=== PATIENT | female | born 1935 | race Hispanic/Latino ===

== ENCOUNTER 2021-10-07 15:58 | Observation (INO) | payer MEDICARE ==
[~2021-10-07] VITALS: Ht 149.9 cm; Wt 41.5 kg
[2021-10-07 16:42] LABS: BASOPHILS % (AUTO) 0.4 % (0.0-5.0); EOSINOPHILS % (AUTO) 0.5 % (0.0-8.0); HEMATOCRIT 41.7 % (36-48); LYMPHOCYTES % (AUTO) 19.2 % (21.0-51.0); MEAN CORPUSCULAR HGB CONC 31.7 g/dL (32.0-36.0); MEAN CORPUSCULAR VOLUME 88.5 fL (79-99); MONOCYTES % (AUTO) 11.6 % (3.0-13.0); NEUTROPHILS % (AUTO) 67.6 % (40.0-77.0); PLATELET COUNT (AUTO) 186 K/uL (130-400); RED BLOOD CELL COUNT(AUTO) 4.71 MIL/uL (4.00-5.50); RED CELL DISTRIBUTION WIDTH 17.2 % (11.0-15.5); WHITE BLOOD COUNT (AUTO) 8.5 K/uL (4.8-10.8)
[2021-10-07 16:49] LABS: CREATININE 0.8 mg/dL (0.5-1.5); POTASSIUM 3.7 mmol/L (3.5-5.1)
[2021-10-07 16:53] LABS: ALBUMIN 3.8 g/dL (3.5-5.0); BILIRUBIN,TOTAL 0.9 mg/dL (0.2-1.0); TOTAL PROTEIN, SERUM 8.7 g/dL (6.0-8.3)
[2021-10-07 17:56] LABS: APPEARANCE,URINE Clear (CLEAR); BILIRUBIN,URINE Negative (NEGATIVE); COLOR,URINE Yellow (YELLOW); GLUCOSE, URINE (UA) Negative (NEGATIVE); KETONES,URINE Negative (NEGATIVE); LEUKOCYTE ESTERASE ,URINE Moderate (NEGATIVE); NITRATE,URINE Negative (NEGATIVE); OCCULT BLOOD,URINE Negative (NEGATIVE); PH,URINE 5.5 (5.0-8.0); PROTEIN,URINE Trace mg/dL (NEGATIVE)
[2021-10-07 18:08] LABS: BACTERIA,URINE Rare /HPF (None Seen); RBC,URINE 0-1 /HPF (0-1)
[2021-10-07 18:09] LABS: MUCUS,URINE Rare LPF (None Seen); SQUAMOUS EPITHELIAL CELL,UR Few /HPF (0-2); YEAST,URINE BUDDING Moderate /HPF (None Seen)
[2021-10-07 18:10] LABS: HYALINE CASTS, URINE 0-1 /LPF (0-1 /LPF)
[2021-10-07] MEDS ORDERED: ASPIRIN 325MG EC TAB PO ONE (18:30)
[2021-10-07] MEDS ORDERED: CEFTRIAXONE 1G VIAL IVP ONE (18:30)
[2021-10-07] MEDS ORDERED: ACETAMINOPHEN 325 MG TAB PO PRN (20:00)
[2021-10-07] MEDS ORDERED: HYDRALAZINE 20MG/ML VIAL IV PRN (20:00)
[2021-10-07] MEDS ORDERED: HYDROCODONE/ACETAMINOPHEN 5/325 MG TAB PO PRN (20:00)
[2021-10-07] MEDS ORDERED: ONDANSETRON 4MG INJ IVP PRN (20:00)
[2021-10-07] MEDS ORDERED: ALBUTEROL 0.083% 2.5 MG/3 ML INH IH PRN (20:00)
[2021-10-07] MEDS ORDERED: TEMAZEPAM 15 MG CAPSULE PO PRN (20:00)
[2021-10-07] MEDS ORDERED: MORPHINE 2 MG SYG IVP PRN (20:00)
[2021-10-07] MEDS ORDERED: ACETAMINOPHEN 650 MG SUPPOSITORY RC PRN (20:00)
[2021-10-07] MEDS: 0.9%NACL 1000ML 1,000 ML IV SCH (20:45)
[2021-10-07] MEDS: INSULIN LISPRO 100 UNIT/ML 3ML SQ SCH (20:45)
[2021-10-07] MEDS: SIMVASTATIN 20 MG TABLET PO SCH (21:00)
[2021-10-07 22:58] LABS: CREATINE KINASE, TOTAL 45 U/L (21-232); MYOGLOBIN 42 ng/mL (10-92)
[2021-10-07] MEDS ORDERED: HALOPERIDOL INJ 5 MG/ML VIAL ONE (23:20)
[2021-10-08 00:05] VITALS: BP 106/59
[2021-10-08] MEDS: 0.9%NACL 1000ML 1,000 ML IV SCH (00:36)
[2021-10-08 01:52] LABS: BASOPHILS % (AUTO) 0.3 % (0.0-5.0); EOSINOPHILS % (AUTO) 0.5 % (0.0-8.0); HEMATOCRIT 35.6 % (36-48); LYMPHOCYTES % (AUTO) 15.9 % (21.0-51.0); MEAN CORPUSCULAR HEMOGLOBIN 28.1 pg (27.0-33.0); MEAN CORPUSCULAR HGB CONC 31.7 g/dL (32.0-36.0); MEAN CORPUSCULAR VOLUME 88.6 fL (79-99); MONOCYTES % (AUTO) 14.3 % (3.0-13.0); NEUTROPHILS % (AUTO) 68.5 % (40.0-77.0); PLATELET COUNT (AUTO) 167 K/uL (130-400); RED BLOOD CELL COUNT(AUTO) 4.02 MIL/uL (4.00-5.50); RED CELL DISTRIBUTION WIDTH 17.1 % (11.0-15.5); WHITE BLOOD COUNT (AUTO) 10.1 K/uL (4.8-10.8)
[2021-10-08 02:10] LABS: B-TYPE NATRIURETIC PEPTIDE 145 pg/mL (0-100); CREATININE 0.7 mg/dL (0.5-1.5); MAGNESIUM 1.6 mg/dL (1.80-2.40); PHOSPHORUS 3.6 mg/dL (2.5-4.9); POTASSIUM 3.4 mmol/L (3.5-5.1)
[2021-10-08 02:11] LABS: CREATINE KINASE, TOTAL 61 U/L (21-232); MYOGLOBIN 92 ng/mL (10-92)
[2021-10-08 04:00] VITALS: BP 120/55
[2021-10-08] MEDS ORDERED: POTASSIUM CHLORIDE 10MEQ/100ML 100 ML IV PRN (05:00)
[2021-10-08] MEDS ORDERED: LIDOCAINE HCL-MPF 1% 2ML VIAL IJ PRN (05:00)
[2021-10-08] MEDS ORDERED: MAGNESIUM 2GM PREMIX 50ML 50 ML IV SCH (05:00)
[2021-10-08] MEDS: INSULIN LISPRO 100 UNIT/ML 3ML SQ SCH ×4 (06:34→20:19)
[2021-10-08 08:00] VITALS: BP 124/57
[2021-10-08] MEDS ORDERED: POTASSIUM CHLORIDE 10% ELIXIR 20 MEQ/15 ML UDCUP PO PRN (08:00)
[2021-10-08] MEDS ORDERED: POTASSIUM CHLORIDE 20MEQ/100ML 100 ML IV PRN ×2 (08:00)
[2021-10-08] MEDS ORDERED: LIDOCAINE HCL-MPF 1% 2ML VIAL IV PRN ×2 (08:00)
[2021-10-08] MEDS ORDERED: KCL 20 MEQ ERTAB PO PRN (08:00)
[2021-10-08] MEDS ORDERED: ASPIRIN 81MG CHEW TAB PO SCH (09:00)
[2021-10-08] MEDS: CEFTRIAXONE 1G VIAL IVP SCH (09:32)
[2021-10-08] MEDS: POLYETHYLENE GLYCOL 3350 17 GM POWD.PACK PO SCH (09:33)
[2021-10-08] MEDS: ENOXAPARIN SODIUM 30 MG/0.3 ML SQ SCH (09:33)
[2021-10-08] MEDS ORDERED: TRAZ-185 PO (11:08)
[2021-10-08] MEDS ORDERED: ASPI-1197 PO (11:08)
[2021-10-08] MEDS ORDERED: DONE10TA43 PO (11:08)
[2021-10-08] MEDS ORDERED: SITA25TA5 PO (11:08)
[2021-10-08] MEDS ORDERED: MEMA5TAB42 PO (11:08)
[2021-10-08] MEDS ORDERED: ATOR20TA65 PO (11:08)
[2021-10-08] MEDS ORDERED: METF-444 PO (11:08)
[2021-10-08] MEDS ORDERED: CALC-866 PO (11:08)
[2021-10-08] MEDS ORDERED: MONT-39 PO (11:08)
[2021-10-08] MEDS ORDERED: MAGNESIUM 2GM PREMIX 50ML 50 ML IV PRN (11:30)
[2021-10-08] MEDS ORDERED: TRAZODONE HCL 50 MG TAB PO PRN (11:30)
[2021-10-08] MEDS ORDERED: CLONIDINE HCL 0.1 MG TABLET PO PRN (11:30)
[2021-10-08 11:52] VITALS: BP 103/52
[2021-10-08 16:00] VITALS: BP 97/67
[2021-10-08] MEDS: SIMVASTATIN 20 MG TABLET PO SCH (20:22)
[2021-10-08 20:50] VITALS: BP 117/59
[2021-10-08] MEDS ORDERED: ATORVASTATIN 20 MG TABLET PO SCH (21:00)
[2021-10-08] MEDS ORDERED: DONEPEZIL HCL 5 MG TAB PO SCH (21:00)
[2021-10-09] VITALS: BP 135/59
[2021-10-09 04:26] VITALS: BP 116/59
[2021-10-09 06:00] LABS: CREATININE 0.6 mg/dL (0.5-1.5); MAGNESIUM 1.7 mg/dL (1.80-2.40); POTASSIUM 3.5 mmol/L (3.5-5.1)
[2021-10-09 06:24] LABS: HEMATOCRIT 37.3 % (36-48); MEAN CORPUSCULAR HEMOGLOBIN 28.9 pg (27.0-33.0); MEAN CORPUSCULAR HGB CONC 29.8 g/dL (32.0-36.0); MEAN CORPUSCULAR VOLUME 97.1 fL (79-99); PLATELET COUNT (AUTO) 137 K/uL (130-400); RED BLOOD CELL COUNT(AUTO) 3.84 MIL/uL (4.00-5.50); RED CELL DISTRIBUTION WIDTH 17.5 % (11.0-15.5); WHITE BLOOD COUNT (AUTO) 5.7 K/uL (4.8-10.8)
[2021-10-09] MEDS: INSULIN LISPRO 100 UNIT/ML 3ML SQ SCH (07:30)
[2021-10-09 08:00] VITALS: BP 115/63
[2021-10-09] MEDS ORDERED: MONTELUKAST SODIUM 10 MG TAB PO SCH (09:00)
[2021-10-09] MEDS ORDERED: **HM** VIT D3 125MCG PO SCH (09:00)
[2021-10-09] MEDS ORDERED: ASPIRIN 81MG CHEW TAB PO SCH (09:00)
[2021-10-09] MEDS ORDERED: MEMANTINE HCL 5 MG TABLET PO SCH (09:00)
[2021-10-09] MEDS: POLYETHYLENE GLYCOL 3350 17 GM POWD.PACK PO SCH (10:00)
[2021-10-09] MEDS: CEFTRIAXONE 1G VIAL IVP SCH (10:01)
[2021-10-09] MEDS: ENOXAPARIN SODIUM 30 MG/0.3 ML SQ SCH (10:01)
[2021-10-09 12:00] VITALS: BP 139/62
[2021-10-09] MEDS: 0.9%NACL 1000ML 1,000 ML IV SCH ×2 (12:00→12:04)
[2021-10-09] MEDS ORDERED: HYDROCORTISONE 25 MG SUPPOSITORY PR SCH (13:30)
[2021-10-09] MEDS ORDERED: LEVO500T90 PO (14:28)
== END 2021-10-09 17:00 | disposition home or self-care (01) ==
LOC: EDH 15:58 → EDHIP 19:31 → 2DH 23:55 → 3AH 10-08 15:15
PROVIDERS: ADMIT Internal Medicine Critical Care Medicine; ATTEND Internal Medicine Critical Care Medicine
DX: G93.41 Metabolic encephalopathy (principal); Z20.822 Contact with and (suspected) exposure to COVID-19; F03.91 Unspecified dementia, unspecified severity, with behavioral disturbance; I44.7 Left bundle-branch block, unspecified; N30.00 Acute cystitis without hematuria; R79.89 Other specified abnormal findings of blood chemistry; E43 Unspecified severe protein-calorie malnutrition; E87.8 Other disorders of electrolyte and fluid balance, not elsewhere classified; E11.65 Type 2 diabetes mellitus with hyperglycemia; K62.3 Rectal prolapse; I50.9 Heart failure, unspecified; E78.00 Pure hypercholesterolemia, unspecified; I21.4 Non-ST elevation (NSTEMI) myocardial infarction; N81.4 Uterovaginal prolapse, unspecified; Z79.82 Long term (current) use of aspirin; Z79.84 Long term (current) use of oral hypoglycemic drugs; Z79.899 Other long term (current) drug therapy
CPT/HCPCS: 36415 ×3; 71045; 80048 ×2; 80053; 81001; 82550 ×3; 82948 ×7; 83605; 83690; 83735 ×2; 83874 ×2; 83880 ×2; 84100; 84145; 84484 ×5; 85025 ×2; 85027; 87040 ×2; 87088; 87635; 93005; 94640; 96361 ×3; 96365; 96366; 96372 ×2; 96375; 96376 ×2; 97039 ×2; 97116; 97161; 97530; 99285; C9803; G0378 ×44; J0696 ×3; J1630; J1650 ×2; J3475; J7030 ×3

== ENCOUNTER 2022-01-06 14:29 | Emergency (ER) | payer MEDICARE ==
[~2022-01-06] VITALS: Ht 142.2 cm; Wt 43.1 kg
[~2022-01-06 14:29] MED LIST: ASPI-1197 PO; ATOR20TA65 PO; CALC-866 PO; DONE10TA43 PO; LEVO-70 PO; MEMA5TAB42 PO; METF-444 PO; MONT-39 PO; SITA25TA5 PO; TRAZ-185 PO
[2022-01-06 15:56] LABS: BASOPHILS % (AUTO) 0.2 % (0.0-5.0); EOSINOPHILS % (AUTO) 0.5 % (0.0-8.0); HEMATOCRIT 35.8 % (36-48); LYMPHOCYTES % (AUTO) 15.5 % (21.0-51.0); MEAN CORPUSCULAR HEMOGLOBIN 27.8 pg (27.0-33.0); MEAN CORPUSCULAR HGB CONC 32.1 g/dL (32.0-36.0); MEAN CORPUSCULAR VOLUME 86.7 fL (79-99); NEUTROPHILS % (AUTO) 71.4 % (40.0-77.0); PLATELET COUNT (AUTO) 172 K/uL (130-400); RED BLOOD CELL COUNT(AUTO) 4.13 MIL/uL (4.00-5.50); RED CELL DISTRIBUTION WIDTH 15.1 % (11.0-15.5); WHITE BLOOD COUNT (AUTO) 17.3 K/uL (4.8-10.8)
[2022-01-06 16:06] LABS: CREATININE 0.8 mg/dL (0.5-1.5); POTASSIUM 3.5 mmol/L (3.5-5.1)
[2022-01-06 16:16] LABS: ALBUMIN 3.2 g/dL (3.5-5.0); TOTAL PROTEIN, SERUM 8.4 g/dL (6.0-8.3)
[2022-01-06 16:19] LABS: BILIRUBIN,URINE NEGATIVE (NEGATIVE); COLOR,URINE YELLOW (YELLOW); GLUCOSE, URINE (UA) NEGATIVE (NEGATIVE); KETONES,URINE NEGATIVE (NEGATIVE); LEUKOCYTE ESTERASE ,URINE 500 Leu/uL (NEGATIVE); NITRATE,URINE 2+ (NEGATIVE); OCCULT BLOOD,URINE NEGATIVE (NEGATIVE); PROTEIN,URINE 20 mg/dL (NEGATIVE); UROBILINOGEN,URINE 0.2 mg/dL (0.2-1.0)
[2022-01-06 16:23] LABS: APPEARANCE,URINE CLEAR (CLEAR)
[2022-01-06 16:26] LABS: BACTERIA,URINE MANY /HPF (None Seen); SQUAMOUS EPITHELIAL CELL,UR RARE /HPF (0-2); WBC,URINE 26-50 /HPF (0-1)
[2022-01-06] MEDS ORDERED: CEFTRIAXONE 1G VIAL IVP ONE (17:00)
[2022-01-06] MEDS ORDERED: MAGN296S76 PO (17:06)
[2022-01-06] MEDS ORDERED: CEPH500B PO (17:06)
[2022-01-06] MEDS ORDERED: BISA10SU61 RC (17:06)
[2022-01-06 17:10] VITALS: BP 134/82
== END 2022-01-06 17:36 | disposition home or self-care (01) ==
LOC: EDH 14:29
DX: N39.0 Urinary tract infection, site not specified (principal); K59.00 Constipation, unspecified; F03.90 Unspecified dementia, unspecified severity, without behavioral disturbance, psychotic disturbance, mood disturbance, and anxiety; E11.9 Type 2 diabetes mellitus without complications; E78.00 Pure hypercholesterolemia, unspecified; Z90.49 Acquired absence of other specified parts of digestive tract; Z98.890 Other specified postprocedural states; Z79.82 Long term (current) use of aspirin; Z79.899 Other long term (current) drug therapy; Z79.84 Long term (current) use of oral hypoglycemic drugs
CPT/HCPCS: 99284; 96374; 80053; 85025; 87077; 87088; 87186; 81001; 36415; 74018; J0696

== ENCOUNTER 2022-11-21 14:19 | Observation (INO) | payer MEDICARE ==
[~2022-11-21] VITALS: Ht 149.9 cm; Wt 48.7 kg
[~2022-11-21 14:19] MED LIST changes: +BISA10SU61 RC; +CEPH500B PO; +MAGN296S73 PO
[2022-11-21 14:53] LABS: SARS-CoV-2, RNA, NAAT NEGATIVE SARS CoV-2 (NEGATIVE)
[2022-11-21 14:58] LABS: INFLUENZA TYPE A Negative For Type A (NEGATIVE); INFLUENZA TYPE B Negative For Type B (NEGATIVE)
[2022-11-21 15:13] LABS: BASOPHILS # (AUTO) 0.05 K/uL (0.00-0.20); BASOPHILS % (AUTO) 0.4 % (0.0-5.0); EOSINOPHILS # (AUTO) 0.02 K/uL (0.00-0.70); EOSINOPHILS % (AUTO) 0.2 % (0.0-8.0); HEMATOCRIT 41.2 % (36-48); IMMATURE GRANULOCYTE ABSOLUTE 0.14 K/uL (0-1); LYMPHOCYTES # (AUTO) 2.4 K/uL (1.0-4.8); LYMPHOCYTES % (AUTO) 18.5 % (21.0-51.0); MEAN CORPUSCULAR HGB CONC 31.6 g/dL (32.0-36.0); MONOCYTES # (AUTO) 1.5 K/uL (0.1-1.0); MONOCYTES % (AUTO) 11.4 % (3.0-13.0); NEUTROPHILS # (AUTO) 8.8 K/uL (1.8-7.7); NEUTROPHILS % (AUTO) 68.4 % (40.0-77.0); PLATELET COUNT (AUTO) 208 K/uL (130-400); RED BLOOD CELL COUNT(AUTO) 4.48 MIL/uL (4.00-5.50); RED CELL DISTRIBUTION WIDTH 15.3 % (11.0-15.5); WHITE BLOOD COUNT (AUTO) 12.8 K/uL (4.8-10.8)
[2022-11-21 15:24] LABS: CREATININE 1.6 mg/dL (0.5-1.5); POTASSIUM 3.7 mmol/L (3.5-5.1)
[2022-11-21 15:37] LABS: ALBUMIN 3.5 g/dL (3.5-5.0); BILIRUBIN,TOTAL 0.6 mg/dL (0.2-1.0); MAGNESIUM 1.4 mg/dL (1.80-2.40); TOTAL PROTEIN, SERUM 8.6 g/dL (6.0-8.3)
[2022-11-21] MEDS ORDERED: 0.9%NACL 1000ML 1,000 ML IV ONE (16:00)
[2022-11-21] MEDS ORDERED: KETOROLAC 15MG/ML VIAL (15MG/ML) IV PRN (16:30)
[2022-11-21] MEDS ORDERED: ACETAMINOPHEN 325 MG TAB PO PRN (16:30)
[2022-11-21] MEDS ORDERED: ALBUTEROL 0.083% 2.5 MG/3 ML INH IH PRN (16:30)
[2022-11-21] MEDS ORDERED: HYDRALAZINE 20MG/ML VIAL IV PRN (16:30)
[2022-11-21] MEDS: 0.9%NACL 1000ML 1,000 ML IV SCH (17:02)
[2022-11-21 18:00] LABS: APPEARANCE,URINE CLEAR (CLEAR); BILIRUBIN,URINE NEGATIVE (NEGATIVE); COLOR,URINE LIGHT-YELLOW (YELLOW); GLUCOSE, URINE (UA) NEGATIVE (NEGATIVE); KETONES,URINE NEGATIVE (NEGATIVE); LEUKOCYTE ESTERASE ,URINE NEGATIVE Leu/uL (NEGATIVE); NITRATE,URINE NEGATIVE (NEGATIVE); OCCULT BLOOD,URINE NEGATIVE (NEGATIVE); PH,URINE 5.5 (5.0-8.0); PROTEIN,URINE 30 mg/dL (NEGATIVE); UROBILINOGEN,URINE 0.2 mg/dL (0.2-1.0)
[2022-11-21] MEDS: IPRATROPIUM/ALBUTEROL SULFATE 3 ML SOLUTION IH SCH (18:00)
[2022-11-21 18:04] LABS: ADD UA MICROSCOPIC YES
[2022-11-21 18:08] LABS: RBC,URINE 0-1 /HPF (0-1); SQUAMOUS EPITHELIAL CELL,UR RARE /HPF (0-2); WBC,URINE 0-1 /HPF (0-1)
[2022-11-21] MEDS ORDERED: LACTATED RINGERS 1000ML 1,000 ML IV SCH (20:00)
[2022-11-21] MEDS ORDERED: MAGNESIUM 2GM PREMIX 50ML 50 ML IV SCH (20:00)
[2022-11-21] MEDS: HEPARIN 5,000 UNIT VIAL SQ SCH (20:11)
[2022-11-21] MEDS ORDERED: FAMOTIDINE 20MG VIAL IV SCH ×2 (21:00)
[2022-11-21] MEDS ORDERED: HEPARIN 5,000 UNIT VIAL SQ SCH (21:00)
[2022-11-21 21:11] VITALS: O2SAT 95
[2022-11-21 21:49] VITALS: BP 128/71; PULSE 81; RESP 20
[2022-11-21] MEDS ORDERED: QUET25TA36 PO (22:19)
[2022-11-21] MEDS ORDERED: DOCU100C33 PO (22:19)
[2022-11-22] MEDS: 0.9%NACL 1000ML 1,000 ML IV SCH (02:30)
[2022-11-22 03:43] VITALS: BP 123/49; PULSE 68; RESP 20
[2022-11-22 05:12] LABS: BASOPHILS # (AUTO) 0.03 K/uL (0.00-0.20); BASOPHILS % (AUTO) 0.4 % (0.0-5.0); EOSINOPHILS # (AUTO) 0.08 K/uL (0.00-0.70); EOSINOPHILS % (AUTO) 1.1 % (0.0-8.0); HEMATOCRIT 33.9 % (36-48); IMMATURE GRANULOCYTE ABSOLUTE 0.06 K/uL (0-1); LYMPHOCYTES # (AUTO) 2.9 K/uL (1.0-4.8); LYMPHOCYTES % (AUTO) 40.9 % (21.0-51.0); MEAN CORPUSCULAR HEMOGLOBIN 28.6 pg (27.0-33.0); MEAN CORPUSCULAR HGB CONC 31.3 g/dL (32.0-36.0); MEAN CORPUSCULAR VOLUME 91.6 fL (79-99); MONOCYTES # (AUTO) 0.9 K/uL (0.1-1.0); MONOCYTES % (AUTO) 13.1 % (3.0-13.0); NEUTROPHILS # (AUTO) 3.1 K/uL (1.8-7.7); NEUTROPHILS % (AUTO) 43.7 % (40.0-77.0); PLATELET COUNT (AUTO) 164 K/uL (130-400); RED CELL DISTRIBUTION WIDTH 15.5 % (11.0-15.5); WHITE BLOOD COUNT (AUTO) 7.1 K/uL (4.8-10.8)
[2022-11-22 05:29] LABS: HEMOGLOBIN A1C 6.3 % (4.0-6.0)
[2022-11-22] MEDS: HEPARIN 5,000 UNIT VIAL SQ SCH ×2 (05:32→13:00)
[2022-11-22 05:40] LABS: ALBUMIN 2.6 g/dL (3.5-5.0); BILIRUBIN,TOTAL 0.5 mg/dL (0.2-1.0); CREATININE 1.1 mg/dL (0.5-1.5); MAGNESIUM 1.3 mg/dL (1.80-2.40); POTASSIUM 3.8 mmol/L (3.5-5.1); THYROID STIMULATING HORMONE 1.31 uIU/mL (0.36-3.74); TOTAL PROTEIN, SERUM 6.5 g/dL (6.0-8.3)
[2022-11-22] MEDS: IPRATROPIUM/ALBUTEROL SULFATE 3 ML SOLUTION IH SCH ×2 (06:00)
[2022-11-22 08:00] VITALS: BP 126/56; PULSE 73; RESP 18
[2022-11-22] MEDS ORDERED: PANTOPRAZOLE 40 MG/VIAL IVP SCH (09:00)
[2022-11-22] MEDS ORDERED: TRAZODONE HCL 50 MG TAB PO SCH (09:00)
[2022-11-22] MEDS: DOCUSATE SODIUM 100 MG CAP PO SCH ×2 (11:56→16:14)
[2022-11-22] MEDS: ASPIRIN 81MG CHEW TAB PO SCH ×2 (11:56→16:15)
[2022-11-22] MEDS: MEMANTINE HCL 5 MG TABLET PO SCH ×2 (11:57→16:14)
[2022-11-22] MEDS: QUETIAPINE FUMARATE 25 MG TAB PO SCH ×2 (11:57→16:14)
[2022-11-22 12:00] VITALS: BP 122/51; PULSE 65; RESP 20
[2022-11-22] MEDS ORDERED: DONEPEZIL HCL 5 MG TAB PO SCH (21:00)
[2022-11-22] MEDS ORDERED: ATORVASTATIN 20 MG TABLET PO SCH (21:00)
[2022-11-23] MEDS ORDERED: VITAMIN D3 PO SCH (09:00)
[2022-11-23] MEDS ORDERED: [UNRECOGNIZED DRUG - OTHER] PO SCH (09:00)
== END 2022-11-22 16:45 | disposition home or self-care (01) ==
LOC: EDH 14:19 → EDHIP 16:04 → 3BH 21:49
PROVIDERS: ADMIT Internal Medicine Pulmonary Disease; ATTEND Internal Medicine Pulmonary Disease
DX: A41.9 Sepsis, unspecified organism (principal); Z20.822 Contact with and (suspected) exposure to COVID-19; R65.20 Severe sepsis without septic shock; N17.9 Acute kidney failure, unspecified; E11.9 Type 2 diabetes mellitus without complications; R62.7 Adult failure to thrive; E83.42 Hypomagnesemia; E86.0 Dehydration; M62.82 Rhabdomyolysis; F03.C0 Unspecified dementia, severe, without behavioral disturbance, psychotic disturbance, mood disturbance, and anxiety; M25.512 Pain in left shoulder; E78.00 Pure hypercholesterolemia, unspecified; I10 Essential (primary) hypertension; G89.29 Other chronic pain; M19.90 Unspecified osteoarthritis, unspecified site; Z90.89 Acquired absence of other organs; Z79.82 Long term (current) use of aspirin; Z86.73 Personal history of transient ischemic attack (TIA), and cerebral infarction without residual deficits; Z79.84 Long term (current) use of oral hypoglycemic drugs; Z79.899 Other long term (current) drug therapy; Z98.890 Other specified postprocedural states; Z74.01 Bed confinement status
CPT/HCPCS: 96372 ×2; 96361 ×3; 99285; 82550 ×2; 83735 ×2; 83874; 84484 ×2; 80053 ×2; 83880; 85025 ×2; 87804 ×2; 83605 ×3; 81001; 36415 ×2; 87635; 71045 ×2; 93005; 94664; 84145 ×2; 96365; 96375; 96366; 83036; 84443; 82140; 82948 ×3; 93306; 97161; 97039; G0378 ×24; C9803; J7120; J1644 ×2; J3475; C9113